=== PATIENT | male | born 2000 ===

== ENCOUNTER 2020-10-29 08:00 | Outpatient (CLI) | payer OTHER ==
--- NOTE | 2020-10-29 16:45 | XRAY Report ---
PROCEDURE: Finger(s) RT INDICATIONS: INJURY OF RIGHT FINERS, 5TH TECHNIQUE: AP view of the right hand and 2 views of the fifth finger. COMPARISON: None FINDINGS: Bones: No fractures or dislocations. No suspicious bony lesions. Soft tissues: On the radial side of the proximal phalanx of the fifth finger there is a soft tissue d ensity mass which measures 1.5 x 0.6 x 0.8 cm. There is no adjacent bone involvement. The mass appear s oval-shaped. IMPRESSION: 1. No acute abnormality of the right little finger. 2. 1.5 x 0.6 x 0.8 cm soft tissue mass on the radial side of the proximal phalanx of the little finge r. Reviewed by: Mika Eubanks on 10/29/2020 4:44 PM [facility] Approved by: Mika Eubanks on 10/29/2020 4:44 PM [facility] Station ID: [id number]
== END 2020-10-29 23:59 | disposition home or self-care (01) ==
LOC: DI.N 08:00
PROVIDERS: ATTEND Nurse Practitioner
DX: S69.91XA Unspecified injury of right wrist, hand and finger(s), initial encounter (principal); R22.31 Localized swelling, mass and lump, right upper limb